=== PATIENT | male | born 1985 | race Caucasian/White ===

== ENCOUNTER 2021-01-08 16:02 | Emergency (ER) | payer BC ==
[2021-01-08 16:12] VITALS: BP 114/88
[2021-01-08] MEDS ORDERED: TETANUS/DIPHTHERIA/PERTUSSIS 0.5 ML SYRINGE IM ONE (16:15)
[2021-01-08] MEDS ORDERED: BACITRACIN ZINC OINT 1 PACKET TOP STA (16:16)
[2021-01-08] MEDS ORDERED: BUFFERED LIDOCAINE 10 ML SYRINGE SUBQ STA (16:17)
--- NOTE | 2021-01-08 16:19 | ED Physician Documentation ---
History of Present Illness - Stated complaint Stated Complaint: RT FOOT LAC - Chief complaint Chief Complaint: Laceration - Additonal information Additional information: 35-year-old male presents emergency department for evaluation of a distal right foot laceration sustained when chopping wood this afternoon. The corner of the ask lacerated his canvas shoes causing a 1.5 cm distal foot laceration between at the MCP joint of the middle metatarsal. Unknown last tetanus. Bleeding controlled with pressure. Review of Systems Constitutional: reports: Reviewed and negative Nose: reports: Reviewed and negative Throat: reports: Reviewed and negative Cardiac: reports: Reviewed and negative Respiratory: reports: Reviewed and negative GI: reports: Reviewed and negative : reports: Reviewed and negative Skin: reports: Laceration (s) (right distal foot) Musculoskeletal: reports: Reviewed and negative Neurologic: reports: Reviewed and negative PD PAST MEDICAL HISTORY - Present Medications Home Medications: Ambulatory Orders Medication Instructions Recorded Confirmed No Known Home Medications 01/08/21 01/08/21 - Allergies Allergies/Adverse Reactions: Allergies Allergy/AdvReac Type Severity Reaction Status Date / Time No Known Drug Allergies Allergy Verified 01/08/21 16:09 PD ED PE EXPANDED - Extremities Extremities: Right foot (1.5 cm vertical laceration just over MCP joint of middle metatarsal. 2+ DP pulse. normal gait. ) Results - Vitals Vitals: Vital Signs - 24 hr 01/08/21 16:10 Temperature 36.2 C L Heart Rate 64 Respiratory 16 Rate Blood Pressure 114/88 H O2 Saturation 99 Oxygen O2 Source Room air - Rads (name of study) right foot Radiology: EMP read indepedently (no fx or FB) Procedures - Laceration (location) right foot Length in cm: 1.5 Wound type: Linear, Into subcut fat Neurovascular status: Sensory intact, Motor intact Tendon involvement: Tendon intact Anesthesia: LET Wound preparation: Chlorhexadine, Irrigated copiously NS Skin layer closure: Nylon, Size #-0 - enter number (4), Sutures - enter # (3) Other: Patient tolerated well, No complications, Neurovascular intact, Tetanus booster given PD MEDICAL DECISION MAKING - ED course Complexity details: reviewed results, re-evaluated patient, d/w patient ED course: 35-year-old male presents emergency department for evaluation of a right distal foot LAC sustained when chopping wood this afternoon. X-ray does not reveal any foreign body or fractured bone. Tetanus was updated today. Wound was easily closed using 3 sutures. Routine wound care emergent return precautions discussed. Deferral of abx given timely closure Departure - Departure Disposition: 01 Home, Self Care Clinical Impression: Laceration of right foot Qualifiers: Encounter type: initial encounter Qualified Code(s): S91.311A - Laceration without foreign body, right foot, initial encounter Condition: Stable Record reviewed to determine appropriate education?: Yes Instructions: ED Laceration Foot Comments: Your sutures should be removed in 7 days. In 24 hours you may remove the dressing wash gently with warm soap and water, apply any antibiotic ointment and a simple bandage. Your tetanus is up-to-date. Please attempt to keep your wound clean and dry. Do not submerge it in dirty dishwater or bath water. Return to the emergency department if you have any concerns of infection such as redness, fevers milky drainage increased pain.
--- NOTE | 2021-01-08 16:34 | XRAY Report ---
PROCEDURE: Foot 2 View RT INDICATIONS: chopped with ax. r/o fx distal middle metatarsal TECHNIQUE: 2 views of the foot were acquired. COMPARISON: None. FINDINGS: Bones: No acute fractures or dislocations. No suspicious bony lesions. Soft tissues: Soft tissue edema is seen at the dorsum of the forefoot. IMPRESSION: No acute osseous abnormality. Soft tissue edema is seen at the dorsum of the forefoot. If there is clinical concern or persistent symptoms, additional imaging such as repeat radiographs or advanced imaging (e.g. CT, MRI) may be helpful for further evaluation. Reviewed by: Feliciano Naranjo MD on 01/08/2021 4:32 PM PDT Approved by: Feliciano Naranjo MD on 01/08/2021 4:32 PM PDT Station ID: [id number]
== END 2021-01-08 16:57 | disposition home or self-care (01) ==
LOC: ED 16:02
DX: S91.311A Laceration without foreign body, right foot, initial encounter (principal); W27.0XXA Contact with workbench tool, initial encounter; Z23 Encounter for immunization
CPT/HCPCS: 12001; 73620; 90471; 90715; 99281; 99283; A9270